=== PATIENT | female | born 1975 | race Caucasian/White ===

== ENCOUNTER 2017-06-29 12:40 | Outpatient (CLI) | payer BC ==
--- NOTE | 2017-06-29 15:39 | MRI ---
MRI LUMBAR SPINE WITHOUT IV CONTRAST: INDICATION: Lumbar radiculopathy with low back pain extending right leg. TECHNIQUE: Multiplanar, multisequence MR images were obtained of the lumbar spine without IV contrast. FINDINGS: Bone marrow signal intensity appears within normal limits. Conus is seen to terminate at approximate ly the L1-L2 level. Visualized retroperitoneum and paravertebral soft tissues are unremarkable. At L5-S1, there is no appreciable central canal or neural foraminal narrowing. At L4-5, there is no appreciable central canal or neural foraminal narrowing. At the L3-4 level, there is mild broad-based bulge without appreciable central canal or neural forami nal narrowing. There is mild facet joint degenerative change. At L2-3, there is no appreciable central canal or neural foraminal narrowing. At L1-L2, there is no appreciable central canal or neural foraminal narrowing. At T12-L1, there is no appreciable central canal or neural foraminal narrowing. IMPRESSION: 1. Mild spondylosis of the lumbar spine most pronounced at L3-4. 2. No definite appreciable central canal or neural foraminal narrowing demonstrated. POS: [facility]
== END 2017-06-29 12:41 | disposition home or self-care (01) ==
LOC: TBSIIMAG 12:40
PROVIDERS: ATTEND Neurological Surgery
DX: M47.26 Other spondylosis with radiculopathy, lumbar region (principal)
CPT/HCPCS: 72148

== ENCOUNTER 2017-07-08 13:54 | Outpatient (CLI) | payer BC ==
--- NOTE | 2017-07-08 15:35 | CT ---
CT OF THE PELVIS WITHOUT CONTRAST 07/08/17 INDICATION: Right sided hip pain that wraps around her right gluteal region and extends down right leg with pain and tingling. FINDINGS: There is a normal appendix seen in the right lower quadrant of the abdomen. Unopacified uterus, adnex a, bladder, rectum, and perirectal soft tissues are unremarkable. There is gas filled tampon within t he vascular vault. No free fluid is evident. There is a small phlebolith within the lower right hemip terence. Mild degenerative change of both SI joints. No acute fracture is evident. IMPRESSION: No acute osseous abnormality. POS: [place]
== END 2017-07-08 13:55 | disposition home or self-care (01) ==
LOC: SCSCT 13:54
PROVIDERS: ATTEND Neurological Surgery
DX: R10.2 Pelvic and perineal pain (principal); M89.8X8 Other specified disorders of bone, other site
CPT/HCPCS: 72192

== ENCOUNTER 2017-07-20 15:13 | Outpatient (CLI) | payer BC ==
--- NOTE | 2017-07-20 19:19 | MRI ---
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 COMPARISON: MR lumbar spine dated without contrast. CONTRAST: 20 mL Multihance. FINDINGS: No definite abnormal enhancing mass is demonstrated. No abnormal enhancement is seen within the lumba r vertebral column. No visible sacral neural foraminal narrowing is evident. No lymphadenopathy is ev ident. IMPRESSION: No abnormal enhancement demonstrated. POS: [place]
--- NOTE | 2017-07-20 19:29 | MRI ---
MR OF THE RIGHT FEMUR WITH AND WITHOUT IV CONTRAST: 07/20/17 INDICATION: Low back pain, right sided radiculopathy. CONTRAST: 20 mL of Multihance. FINDINGS: No pathologically enlarged lymph node is evident. There is mild tendinosis of the right gluteus minim us and medius tendons. No iliopsoas bursitis is evident. There is nonspecific subchondral cyst-like a bnormality involving the anterior aspect of the femoral head and neck junction of the right hip. Rect us femoris and right hamstring origin appears within normal limits. The visualized right sciatic nerv e has a normal signal intensity and morphological appearance without evidence of abnormal enhancement . The visualized intrapelvic contents demonstrate small Nabothian cysts within the cervix. No free fl uid is evident. No acute fracture is demonstrated. IMPRESSION: 1. Mild right gluteus minimus and medius tendinosis. 2. Nonspecific subchondral cyst-like abnormality seen within the anterior femoral head and neck junction. This can be seen in patient's with CAM type femoral acetabular impingement. No overt labral tear was grossly evident. 3. No abnormal enhancement or signal abnormality involving the right sciatic nerve. POS: [facility]
== END 2017-07-20 15:14 | disposition home or self-care (01) ==
LOC: MRI 15:13
PROVIDERS: ATTEND Neurological Surgery
DX: M54.16 Radiculopathy, lumbar region (principal); D36.13 Benign neoplasm of peripheral nerves and autonomic nervous system of lower limb, including hip; M76.01 Gluteal tendinitis, right hip
CPT/HCPCS: 72149

== ENCOUNTER 2018-04-10 15:18 | Emergency (ER) | payer BC, SELFPAY ==
[2018-04-10 16:09] LABS: #Basophils 0.1 thou/uL (0.0-0.2); #Eosinphils 0.2 thou/uL (0.0-0.7); #Lymphocytes 3.6 thou/uL (1.20-3.40); #Monocytes 0.7 thou/uL (0.11-0.59); #Neutrophils 5.2 thou/uL (1.40-6.50); %Basophils 1.1 % (0.0-1.0); %Eosinophils 2.1 % (0.0-10.0); %Lymphocytes 36.8 % (21.0-51.0); %Monocytes 7.1 % (0.0-10.0); Hemoglobin 13.7 g/dL (12.0-16.0); Mean Corpuscular HGB CONC 31.1 g/dL (32.0-36.0); Mean Corpuscular Hemoglobin 26.9 pg (27.0-31.0); Mean Corpuscular Volume 86.4 fL (78.0-98.0); Mean Platelet Volume 9.3 fL (7.4-10.4); Platelet Count 296 thou/uL (130-400); RBC Distribution Width 11.7 % (11.5-14.5); White Blood Cell (WBC) Count 9.8 thou/uL (4.8-10.8)
[2018-04-10 16:32] LABS: ALT (SGPT) 16 U/L (8-55); AST (SGOT) 14 U/L (5-34); Albumin 4.1 g/dL (3.5-5.0); Alkaline Phosphatase 88 U/L (40-150); Anion Gap 13 mmol/L (10-20); BUN (Urea Nitrogen) 12 mg/dL (7.0-18.7); Bilirubin, Total 0.5 mg/dL (0.2-1.2); CK (CPK) 34 U/L (29-168); Calc. Creatinine Clearance 0 mL/min (70-130); Calcium 9.2 mg/dL (7.8-10.44); Carbon Dioxide 29 mmol/L (22-29); Chloride 104 mmol/L (98-107); Estimated GFR-MDRD 82; Globulin 2.8 g/dL (2.4-3.5); Glucose 94 mg/dL (70-105); Potassium 4.2 mmol/L (3.5-5.1); Protein, Total 6.9 g/dL (6.0-8.3); Sodium 142 mmol/L (136-145)
== END 2018-04-10 19:33 | disposition home or self-care (01) ==
LOC: SCSER 15:18
DX: R07.9 Chest pain, unspecified (principal); F41.9 Anxiety disorder, unspecified; F32.9 Major depressive disorder, single episode, unspecified; Z87.891 Personal history of nicotine dependence; Z79.891 Long term (current) use of opiate analgesic; Z79.899 Other long term (current) drug therapy
CPT/HCPCS: 36415; 80053; 82550; 84484; 85025; 85379; 93005

== ENCOUNTER 2020-12-12 10:32 | Outpatient (CLI) | payer BC | END 2020-12-12 10:33 | disposition home or self-care (01) | LOC: DTY/OP 10:32 | PROVIDERS: ATTEND Surgery | DX: E66.01 Morbid (severe) obesity due to excess calories (principal) | CPT/HCPCS: 97802 ==

== ENCOUNTER 2021-01-26 12:54 | Outpatient (CLI) | payer BC ==
[2021-01-26 15:50] LABS: #Eosinphils 0.2 10x3/uL (0.0-0.5); #Monocytes 0.5 10x3/uL (0.0-1.1); #Neutrophils 5.4 10x3/uL (1.5-8.4); %Basophils 0.3 % (0.0-2.0); %Eosinophils 2.4 % (0.0-6.0); %Lymphocytes 32.8 % (18.0-47.0); %Monocytes 4.9 % (0.0-10.0); %Neutrophils 59.3 % (40.0-75.0); Mean Corpuscular HGB CONC 32.9 g/dL (32.0-36.0); Mean Corpuscular Hemoglobin 28.7 pg (27.0-33.0); Mean Corpuscular Volume 87.1 fl (81.6-98.3); Mean Platelet Volume 12.2 fl (7.4-10.4); Platelet Count 333 10x3/uL (150-450); RBC Distribution Width 11.6 % (11.5-14.5); Red Blood Cell (RBC) Count 4.88 10x6/uL (3.90-5.03); White Blood Cell (WBC) Count 9.2 10x3/uL (3.5-10.5)
[2021-01-26 16:18] LABS: ALT (SGPT) 45 U/L (8-55); AST (SGOT) 38 U/L (5-34); Albumin 4.6 g/dL (3.5-5.0); Alkaline Phosphatase 87 U/L (40-110); Anion Gap 16 mmol/L (10-20); BUN (Urea Nitrogen) 18 mg/dL (7.0-18.7); Bilirubin, Total 0.4 mg/dL (0.2-1.2); Calc. Creatinine Clearance 0 mL/min (70-130); Calcium 10.1 mg/dL (7.8-10.44); Carbon Dioxide 26 mmol/L (22-29); Chloride 103 mmol/L (98-107); Globulin 2.6 g/dL (2.4-3.5); Glucose 115 mg/dL (70-105); Potassium 4.7 mmol/L (3.5-5.1); Protein, Total 7.2 g/dL (6.0-8.3); Sodium 140 mmol/L (136-145)
[2021-01-26 20:27] LABS: Hemoglobin A1c 5.9 % (4.0-6.0)
[2021-01-27 08:17] LABS: SARS-CoV-2 PCR by NAA Not Detected (NotDetected)
== END 2021-01-26 12:55 | disposition home or self-care (01) ==
LOC: LABBT 12:54
PROVIDERS: ATTEND Surgery
DX: Z01.818 Encounter for other preprocedural examination (principal); E66.01 Morbid (severe) obesity due to excess calories; Z20.822 Contact with and (suspected) exposure to COVID-19
CPT/HCPCS: 71046; 80053; 83036; 85025; 93005; 93010; U0003; U0005

== ENCOUNTER 2021-01-29 09:00 | Inpatient (IN) | payer BC ==
[2021-01-28 12:24] VITALS: BMI 42.7
[2021-01-29] MEDS ORDERED: Levofloxacin 500 mg/D5W 100 ml Premix Bag ONE (09:52)
[2021-01-29] MEDS ORDERED: Midazolam HCl 2 mg/2 ml Vial ONE ×2 (10:29→13:17)
[2021-01-29] MEDS ORDERED: Lidocaine 1% w/Epinephrine 1:100K 20 ML VIAL ONE (10:55)
[2021-01-29] MEDS ORDERED: Bupivacaine 0.25% HCL 30 ML VIAL ONE (10:55)
[2021-01-29] MEDS ORDERED: Fentanyl 250 MCG/5 ML VIAL ONE (10:56)
[2021-01-29] MEDS ORDERED: PROPOFOL 200 MG/20 ML VIAL ONE (11:10)
[2021-01-29] MEDS ORDERED: Ketorolac Tromethamine 30 MG/ML VIAL ONE (11:10)
[2021-01-29] MEDS ORDERED: Ondansetron PF 4 MG/2 ML Vial ONE (11:10)
[2021-01-29] MEDS ORDERED: Glycopyrrolate 0.2 MG/ML 5 ML SYRINGE ONE (11:10)
[2021-01-29] MEDS ORDERED: ePHEDrine 50 MG/ML VIAL ONE (11:10)
[2021-01-29] MEDS ORDERED: Dexamethasone 20 MG/5 ML VIAL ONE (11:10)
[2021-01-29] MEDS ORDERED: PHENYLEPHRINE-NS 100 MCG/ML 10 ML SYRINGE ONE (11:10)
[2021-01-29] MEDS ORDERED: Rocuronium Bromide 10 MG/ML (10ML VIAL) ONE (11:10)
[2021-01-29] MEDS ORDERED: Ondansetron PF 4 MG/2 ML Vial IVP PRN ×2 (12:43→13:30)
[2021-01-29] MEDS ORDERED: diphenhydrAMINE 50 MG/ML VIAL IVP PRN (12:43)
[2021-01-29] MEDS ORDERED: Promethazine HCl 25 MG/ML VIAL IM PRN ×2 (12:43→13:30)
[2021-01-29] MEDS ORDERED: Dextrose 50% Abboject 50 ML SYRINGE SLOW IVP PRN (12:43)
[2021-01-29] MEDS ORDERED: Hydrocodone-Acetamin 15 ML UDCUP PO PRN (12:43)
[2021-01-29] MEDS ORDERED: Dextrose 5% in Water 1,000 ML IV PRN (12:43)
[2021-01-29] MEDS ORDERED: hydrALAZINE 20 MG/ML VIAL SLOW IVP PRN (12:43)
[2021-01-29] MEDS ORDERED: HYDROmorphone 2 MG/ML VIAL ONE (13:09)
[2021-01-29] MEDS ORDERED: Sodium Chloride 0.9% (PF) 10 ML VIAL FS PRN (13:15)
[2021-01-29] MEDS ORDERED: Non-Formulary Medication 1 EACH PO PRN (13:18)
[2021-01-29] MEDS ORDERED: diphenhydrAMINE 25 MG CAP PO PRN (13:30)
[2021-01-29] MEDS ORDERED: Ketorolac Tromethamine 30 MG/ML VIAL IVP PRN (13:30)
[2021-01-29] MEDS ORDERED: diphenhydrAMINE 50 MG/ML VIAL IM/IV PRN (13:30)
[2021-01-29] MEDS ORDERED: Promethazine HCl 25 MG/ML VIAL IM/IV PRN (13:30)
[2021-01-29] MEDS ORDERED: Naloxone HCl 0.4 mg/ml Vial IV PRN (13:30)
[2021-01-29] MEDS ORDERED: Zolpidem Tartrate 5 MG TAB PO PRN (13:30)
[2021-01-29] MEDS ORDERED: Fentanyl CADD 100 ML IVPB SCH (13:30)
[2021-01-29] MEDS ORDERED: HYDROmorphone 2 MG/ML VIAL SLOW IVP PRN (13:30)
[2021-01-29] MEDS ORDERED: Ondansetron HCl/PF 4 MG/2 ML Vial IVP PRN (13:30)
[2021-01-29] MEDS ORDERED: Fentanyl 100 MCG/2 ML VIAL ONE (14:02)
[2021-01-29] MEDS: D5 1/2 NS w/20 mEq KCL 1,000 ML IV SCH (17:15)
[2021-01-29] MEDS ORDERED: Enoxaparin Sodium 40 MG/0.4 ML SYRINGE SC SCH (21:00)
[2021-01-29] MEDS ORDERED: DULoxetine 60 MG CAP PO SCH (21:00)
[2021-01-29] MEDS ORDERED: Losartan 25 MG TAB PO SCH (21:00)
[2021-01-30] MEDS: D5 1/2 NS w/20 mEq KCL 1,000 ML IV SCH ×3 (01:05→11:46)
[2021-01-30 06:07] LABS: #Lymphocytes 1.6 thou/uL (1.20-3.40); #Monocytes 0.7 thou/uL (0.11-0.59); #Neutrophils 9.5 thou/uL (1.40-6.50); %Eosinophils 0.1 % (0.0-10.0); %Lymphocytes 13.3 % (21.0-51.0); %Monocytes 6.3 % (0.0-10.0); %Neutrophils 80.3 % (42.0-75.0); Hemoglobin 13.2 g/dL (12.0-16.0); Mean Corpuscular HGB CONC 33.9 g/dL (32.0-36.0); Mean Corpuscular Hemoglobin 30.3 pg (27.0-31.0); Mean Corpuscular Volume 89.3 fL (78.0-98.0); Mean Platelet Volume 9.4 fL (7.4-10.4); Platelet Count 294 thou/uL (130-400); RBC Distribution Width 11.1 % (11.5-14.5); Red Blood Cell (RBC) Count 4.36 mill/uL (4.20-5.40); White Blood Cell (WBC) Count 11.8 thou/uL (4.8-10.8)
[2021-01-30 06:24] LABS: Anion Gap 13 mmol/L (10-20); BUN (Urea Nitrogen) 10 mg/dL (7.0-18.7); Calc. Creatinine Clearance 166 mL/min (70-130); Calcium 9.4 mg/dL (7.8-10.44); Carbon Dioxide 22 mmol/L (22-29); Chloride 106 mmol/L (98-107); Glucose 148 mg/dL (70-105); Sodium 136 mmol/L (136-145)
[2021-01-30] MEDS ORDERED: Spironolactone 25 MG TAB PO SCH (08:00)
[2021-01-30] MEDS: Hydrocodone-Acetamin 15 ML UDCUP PO PRN ×2 (08:11→12:09)
[2021-01-30] MEDS ORDERED: Pantoprazole 40 MG VIAL IVP SCH (09:00)
[2021-01-30 12:22] VITALS: BP 124/84; TEMP 98
== END 2021-01-30 12:20 | disposition home or self-care (01) | DRG 621 ==
LOC: SDC 09:00 → SJJU 15:52
PROVIDERS: ADMIT Surgery; ATTEND Surgery
PROC: 0DB64Z3 Excision of Stomach, Percutaneous Endoscopic Approach, Vertical (ICD-10-PCS; principal; 2021-01-29)
PROC: 8E0W4CZ Robotic Assisted Procedure of Trunk Region, Percutaneous Endoscopic Approach (ICD-10-PCS; 2021-01-29)
DX: E66.01 Morbid (severe) obesity due to excess calories (principal); Z20.822 Contact with and (suspected) exposure to COVID-19; J30.2 Other seasonal allergic rhinitis; F32.A Depression, unspecified; I10 Essential (primary) hypertension; K58.9 Irritable bowel syndrome, unspecified; F41.9 Anxiety disorder, unspecified; M54.81 Occipital neuralgia; Z68.41 Body mass index [BMI] 40.0-44.9, adult; Z90.710 Acquired absence of both cervix and uterus; Z87.442 Personal history of urinary calculi; Z87.891 Personal history of nicotine dependence; Z79.899 Other long term (current) drug therapy; Z88.0 Allergy status to penicillin; Z01.818 Encounter for other preprocedural examination
CPT/HCPCS: 36415; 71046; 80048; 80053; 83036; 85025; 88307; 93005; C9113; J1100; J1170; J1650; J1885; J1956; J2250; J2405; J2704; J3010; J3480; J3490; S0020; U0003; U0005

== ENCOUNTER 2021-02-23 13:04 | Day surgery (SDC) | payer BC ==
[2021-02-23] MEDS ORDERED: Ondansetron PF 4 MG/2 ML Vial IVP PRN (13:24)
[2021-02-23] MEDS ORDERED: Sodium Chloride 0.9% 1,000 ML IV SCH (13:30)
[2021-02-23] MEDS ORDERED: Multivitamins, Adult 10 ML, Thiamine HCl 100 MG in Sodium Chloride 0.9% 1,000 ML IV SCH (14:00)
[2021-02-23 14:05] VITALS: BP 124/81
== END 2021-02-23 15:15 | disposition home or self-care (01) ==
LOC: ONC/OP 13:04
PROVIDERS: ATTEND Surgery
DX: E86.0 Dehydration (principal); Z88.0 Allergy status to penicillin
CPT/HCPCS: 96361; 96365; 96366; J2405; J3411; J7050

== ENCOUNTER 2021-08-10 11:09 | Outpatient (CLI) | payer BC | END 2021-08-10 11:10 | disposition home or self-care (01) | LOC: SCSRAD 11:09 | PROVIDERS: ATTEND Internal Medicine Rheumatology | DX: M46.1 Sacroiliitis, not elsewhere classified (principal); M47.818 Spondylosis without myelopathy or radiculopathy, sacral and sacrococcygeal region | CPT/HCPCS: 72202 ==